=== PATIENT | male | born 1940 | race Caucasian/White ===

== ENCOUNTER → 2018-04-04 | Outpatient (CLI) | payer OTHER, MEDICARE ==
--- NOTE | ~2018-04-04 | EKG ---
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 04/05/18 0822 1030 1030 Italo Barragan MD, FACC /EPI
[2018-04-04 10:10] LABS: HEMATOCRIT 47.8 % (42.0-52.0); HEMOGLOBIN 16.1 gm/dL (14.0-18.0); MCH 29.3 pg (26.0-34.0); MCHC 33.6 g/dL (28.0-37.0); MCV 87.4 fL (80.0-100.0); PLATELET COUNT 129 thou/uL (150-400); RBC 5.47 mil/uL (4.50-6.00); RDW 14.3 % (10.5-14.5); WBC 4.3 thou/uL (4.0-11.0)
[2018-04-04 10:30] LABS: ALBUMIN 4.3 g/dL (3.4-5.0); CALCIUM 9.9 mg/dL (8.5-10.1); CREATININE 1.6 mg/dL (0.7-1.3); POTASSIUM 4.3 mmol/L (3.5-5.1); TOTAL BILIRUBIN 0.7 mg/dL (<0.1-1.0); TOTAL PROTEIN 7.1 g/dL (6.4-8.2)
[2018-04-04 13:26] LABS: ABSOLUTE NEUTROPHILS 2.6 thou/uL (1.4-8.2)
== END ==
LOC: CV 09:43
PROVIDERS: Otolaryngology Plastic Surgery within the Head & Neck
DX: K21.9 Gastro-esophageal reflux disease without esophagitis (principal); K22.5 Diverticulum of esophagus, acquired; R00.1 Bradycardia, unspecified; R13.19 Other dysphagia; R09.89 Other specified symptoms and signs involving the circulatory and respiratory systems; R49.0 Dysphonia; R05 Cough

== ENCOUNTER 2018-04-18 05:30 | Day surgery (SDC) | payer OTHER, MEDICARE ==
[~2018-04-18] VITALS: Ht 175.3 cm; Wt 76.7 kg
[~2018-04-18 05:30] MED LIST: COZAAR 25 MG TA25 MG PO; CRESTOR10 MG PO; FLOMAX0.4 MG PO; PROTONIX40 M1 PO; SYNTHROID50 MCG PO
[2018-04-18 06:31] VITALS: BP 149/95
[2018-04-18] MEDS ORDERED: CLEOCIN HCL150 MG PO (08:58)
--- NOTE | 2018-04-18 10:49 | O ---
[facility] [place] [address] OPERATIVE REPORT Name: MIRANDA FERARRA Room #: 150-3 [facility]#: [id number] Admission: 04/18/18 Attend Phys: Eliecer Sweet MD Discharge: Date of : 40 Report #: [id number] THIS REPORT FOR: //name// CC: Eliecer Nayak MD DATE OF SERVICE: 04/18/2018 SURGEON: Eliecer Sweet MD. PREOPERATIVE DIAGNOSES: 1. Zenker's diverticulum. 2. Cervical dysphagia. 3. Laryngopharyngeal reflux. 4. Foreign body sensation. POSTOPERATIVE DIAGNOSES: 1. Zenker's diverticulum. 2. Cervical dysphagia. 3. Laryngopharyngeal reflux. 4. Foreign body sensation. OPERATION PERFORMED: 1. Endoscopic Zenker's diverticulectomy. 2. Direct laryngoscopy. 3. Rigid esophagoscopy. 4. Cricopharyngeal myotomy. INDICATIONS: The patient is a 77-year-old male presenting with cervical dysphasia as well as significant reflux. Barium esophagram and video swallow study were done and reviewed showing residual in the piriform sinus and the upper esophagus with prominent Zenker's diverticulum at C7, in addition hiatal hernia and reflux. The patient has been treated. Options of Zenker's diverticulectomy were discussed. This was made more difficult for a small mandible secondary to a fracture in 1995. DESCRIPTION OF PROCEDURE: The patient was brought to the operating room and placed supine on the operating table. After adequate general anesthesia was achieved via endotracheal intubation, he was turned 90 degrees. A shoulder roll was placed and neck was extended. He was prepped and draped for the procedure. Procedure began with direct laryngoscopy. Complete examination was made of the oral cavity, nasopharynx, oropharynx, hypopharynx and larynx. There were no abnormal masses noted. The patient was noted to have cervical osteophytes projecting into the pharynx. The Dedo laryngoscope was removed. This was followed by rigid esophagoscopy with a cervical Jesberg rigid esophagoscope. [facility] [address] [place] [address] OPERATIVE REPORT Name: MIRANDA FERRARA Room #: 150-3 [facility]..#: [id number] Admission: 04/18/18 Attend Phys: Eliecer Sweet MD Discharge: Date of : 40 Report #: [id number] Examination was made of the upper esophagus and pharynx. The patient was noted to have a Zenker's diverticulum at C7. Again, this was slightly off to the right of midline. This was probed with a lumen finder in order to find the esophagus as well as to find the Zenker's. Once this was identified, the esophagoscope was removed. The upper cervical esophagus was otherwise normal. At this point, a Weerda laryngoscope was introduced and the pharynx was expanded behind the larynx to the level of the upper esophagus. This was difficult because of the patient's small mouth. A mouth guard had been made in place for his upper mandibular tape and placed before the procedure. Once the laryngoscope was in good position, probe was made with a lumen finder. After this was confirmed using a BOY stapler with blue load, this was then placed and rotated such that the load went into the esophagus with the anvil and the Zenker's diverticulum. This was then placed and fired. There was some residual stool left and a second load was placed and fired. Video prints were taken to document, although this was difficult due to the small opening and redundant tissue. This was then probed with the lumen finder and found to be adequately open. At this point, the Weerda laryngoscope was removed. There was no bleeding. The patient was then returned to anesthesia, awake without difficulty, returned to recovery in good condition. Sponge and needle counts were correct. There were no complications. BLOOD LOSS: None. He will be watched overnight for monitoring; presuming he does well, discharged to home with plans to follow up with me in 2 weeks. Written and verbal discharge instructions and emergency precautions given to his family. DISCHARGE MEDICATIONS: Will include clindamycin 300 mg t.i.d., Phenergan suppository 25 mg 1 per rectum q.4-6h. p.r.n., hydrocodone/acetaminophen 7.5/325 one to two q.4-6h. p.r.n. He is instructed on light activity and a soft diet. <ELECTRONICALLY SIGNED> By: Eliecer Sweet MD 04/18/18 1049 [id number] 0922 Eliecer Sweet MD /nt
[2018-04-18 16:58] VITALS: BP 102/63
--- NOTE | 2018-04-18 18:30 | NUR ---
PT RECEIVED FROM [facility] AT 1050 ALERT AND IN NO PAIN. PT HAS DONE VERY WELL. STATES SWALLOWING SO MUCH BETTER. EATING SOLID FOODS AND TAKING PILLS W/O DIFFICULTY. IV FLUIDS INFUSING. VOIDING WELL. PLANNING ON DISCHARGE IN AM.
[2018-04-18 19:28] VITALS: BP 117/64
[2018-04-19 04:41] VITALS: BP 130/70
--- NOTE | 2018-04-19 07:08 | NUR ---
Pt A&Ox4, able to make needs known. Pt denies significant pain, medicated at HS for c/o mild pain with relief verbalized. Pt had very mild but persistent hiccups, eventually experienced relief although did not sleep very well. Pt currently resting in bed, call light within reach, Will continue to monitor pt.
[2018-04-19 07:54] VITALS: BP 113/69
[2018-04-19 10:12] VITALS: BP 113/69
--- NOTE | 2018-04-19 10:34 | NUR ---
PT DISCHARGING TO HOME AT THIS TIME DAUGHTER HERE TO TAKE HOME IV ACSESS DCD AND DISCHARGE PAPERS GONE OVER WITH PATIENT SIGNED AND COPY IN CHART. PT W/O PAIN OR RESP DISTRESS AT THE PRESENT.
[2018-04-19 10:44] VITALS: BP 113/69
== END 2018-04-19 10:48 | disposition home or self-care (01) ==
LOC: OR 05:30 → TBA 05:31 → 4E 10:54 → OR 13:45 → ENTRNSPT 04-19 10:34 → EDTRNSPTSTS 04-19 10:36 → OR 04-19 10:48
DX: K22.5 Diverticulum of esophagus, acquired (principal); R13.19 Other dysphagia; K21.9 Gastro-esophageal reflux disease without esophagitis; I10 Essential (primary) hypertension; E78.00 Pure hypercholesterolemia, unspecified; E03.9 Hypothyroidism, unspecified; Z85.820 Personal history of malignant melanoma of skin; Z79.899 Other long term (current) drug therapy; Z87.891 Personal history of nicotine dependence; Z87.19 Personal history of other diseases of the digestive system; Z98.890 Other specified postprocedural states
CPT/HCPCS: 10783; 50010; 50101; 50243; 50246; 62110; 62900